=== PATIENT | male | born 1965 | race Caucasian/White ===

== ENCOUNTER → 2023-12-20 | Outpatient (REF) | payer MEDICARE, BC, MEDICAID ==
[2023-12-20 09:29] LABS: HEMATOCRIT 42.9 % (42.0-52.0); HEMOGLOBIN 14.4 g/dL (13.5-18.0); MEAN PLATELET VOLUME 8.7 fl (7.4-10.4); RED BLOOD COUNT 4.36 M/mm3 (4.20-5.60); RED CELL DISTRIBUTION WIDTH 13.7 % (11.5-14.5)
[2023-12-20 09:31] LABS: ALBUMIN 4.3 g/dL (3.5-5.0)
[2023-12-20 09:32] LABS: CALCIUM 9.9 mg/dL (8.3-10.5)
[2023-12-20 09:33] LABS: TOTAL PROTEIN 7.4 g/dL (6.4-8.3)
[2023-12-20 09:35] LABS: TOTAL BILIRUBIN 0.3 mg/dL (0.2-1.2)
== END ==
LOC: LAB 08:37
PROVIDERS: Family Medicine
DX: I10 Essential (primary) hypertension (principal); E78.5 Hyperlipidemia, unspecified

== ENCOUNTER → 2024-02-16 | Outpatient (CLI) | payer MEDICARE | LOC: RAD 10:00 | DX: N49.2 Inflammatory disorders of scrotum (principal) ==